=== PATIENT | female | born 2000 | race Caucasian/White ===

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

== ENCOUNTER 2022-01-29 03:02 | Inpatient (IN) | payer OTHER ==
[2022-01-29] MEDS ORDERED: SODIUM CHLORIDE 0.9% 1,000 ML IV STA (03:51)
[2022-01-29] MEDS ORDERED: ONDANSETRON 4 MG/2 ML VIAL IVP STA (03:51)
[2022-01-29] MEDS ORDERED: KETOROLAC 15 MG/ML 1 ML VIAL IVP STA (03:51)
[2022-01-29 04:02] LABS: Appearance,Urine Clear (Clear); Bacteria,Urine Rare /hpf; Bilirubin,Urine Negative (Negative); Blood,Urine Large (Negative); Calcium Oxalate Crystals,Urine Rare /hpf; Color,Urine Yellow; Glucose,Urine (UA) Negative (Negative); Ketones,Urine Negative (Negative); Leukocyte Esterase,Urine Small (Negative); Mucus,Urine Moderate /hpf; Nitrite,Urine Negative (Negative); Protein,Urine 1+ (Negative); RBC,Urine >182 /hpf (0-5); Specific Gravity,Urine 1.027 (1.001-1.035); Squamous Epithelial Cell,Urine 5 /hpf (0-4); Urobilinogen,Urine <2.0 mg/dL (<2.0); WBC,Urine 24 /hpf (0-5)
--- NOTE | 2022-01-29 04:10 | XR ---
EXAMINATION TYPE: XR KUB DATE OF EXAM: 01/29/2022 COMPARISON: NONE HISTORY: Flank pain TECHNIQUE: 2 images upright FINDINGS: There is no sign of intestinal obstruction or pneumoperitoneum. Lung bases are clear. Fecal pattern is normal. No evidence of a mass. No calcification seen over the kidneys. IMPRESSION: Nonacute abdomen.
[2022-01-29 04:20] LABS: Basophils % (A) 0 %; Eosinophils # (A) 0.2 k/uL (0-0.7); Eosinophils % (A) 1 %; HCT 38.4 % (34.0-46.0); HGB 13.1 gm/dL (11.4-16.0); Lymphocytes # (A) 1.6 k/uL (1.0-4.8); Lymphocytes % (A) 11 %; MCH 28.8 pg (25.0-35.0); MCV 84.9 fL (80.0-100.0); Monocytes # (A) 0.7 k/uL (0-1.0); Monocytes % (A) 5 %; Neutrophils # (A) 11.9 k/uL (1.3-7.7); Neutrophils % (A) 82 %; Platelet Count 305 k/uL (150-450); RBC 4.53 m/uL (3.80-5.40); RDW 12.5 % (11.5-15.5); WBC 14.5 k/uL (4.0-11.0)
[2022-01-29 04:37] LABS: ALT 14 U/L (4-34); AST 20 U/L (14-36); African American GFR (CKD) >90 (>60 ml/min/1.73 sqM); Albumin 4.6 g/dL (3.5-5.0); Alkaline Phosphatase 65 U/L (38-126); Amylase 42 U/L (30-110); Anion Gap 10 mmol/L; Blood Urea Nitrogen 19 mg/dL (7-17); Calcium 9.4 mg/dL (8.4-10.2); Carbon Dioxide 23 mmol/L (22-30); Chloride 102 mmol/L (98-107); Glucose 118 mg/dL (74-99); Lipase 106 U/L (23-300); Non-African American GFR(CKD) >90 (>60 ml/min/1.73 sqM); Potassium 3.9 mmol/L (3.5-5.1); Sodium 135 mmol/L (137-145); Total Bilirubin 0.4 mg/dL (0.2-1.3); Total Protein 7.6 g/dL (6.3-8.2)
--- NOTE | 2022-01-29 05:19 | ED ---
General Adult HPI - General Chief complaint: Urogenital Stated complaint: RT flank pain, blood in urine Time Seen by Provider: 01/29/22 03:38 Source: patient, RN notes reviewed, old records reviewed Mode of arrival: ambulatory - History of Present Illness Initial comments: Mariano is a 21-year-old female with past medical history that is unremarkable who presents emergency Department complaining of right-sided flank pain with blood in her urine. There is a family medical history of kidney stones and she believes she is experiencing kidney stones at this time. Patient presents with her mother her alicia story. States the pain has been ongoing for a few days. Denies any diarrhea but does endorse nausea as well as nonbilious, nonbloody emesis a few episodes. Denies fevers. Denies chest pain or shortness of breath. Denies any cough or congestion. Denies being at this time. Last period was 2 days ago. Denies vaginal discharge or bleeding. She present s for further evaluation over concern for possible kidney stone. Is endorsing right-sided flank pain that is in nature that radiates from her back around her flank towards her groin. - Related Data Previous Rx's Medication Instructions Recorded Naproxen [Naprosyn] 375 mg PO Q12HR PRN 10 Days #20 01/29/22 tablet Ondansetron Odt [Zofran Odt] 4 mg PO Q8HR PRN 3 Days #9 tab 01/29/22 Tamsulosin HCl [Flomax] 0.4 mg PO DAILY 10 Days #10 capsule 01/29/22 Allergies Allergy/AdvReac Type Severity Reaction Status Date / Time No Known Allergies Allergy Verified 01/29/22 03:21 Review of Systems ROS Statement: Those systems with pertinent positive or pertinent negative responses have been documented in the HPI. Review of Systems: CONST: Denies fever EYES: Denies blurry vision ENT: Denies nasal congestion C/V: Denies Chest pain RESP: Denies shortness of breath GI: Endorses right-sided flank pain. : Denies dysuria SKIN: Denies rash. MSK: Denies joint pain. NEURO: Denies headache ROS Other: All systems not noted in ROS Statement are negative. Past Medical History Past Medical History: No Reported History Additional Past Medical History / Comment(s): vit d deficent History of Any Multi-Drug Resistant Organisms: None Reported Past Surgical History: No Surgical Hx Reported Past Psychological History: No Psychological Hx Reported Smoking Status: Never smoker Past Alcohol Use History: None Reported Past Drug Use History: None Reported General Exam - General Exam Comments Initial Comments: General: Appears in no acute distress. HEAD: Normal with no signs of head trauma. EYES: PERRLA, EOMI, conjunctiva normal, no discharge. ENT: Hearing grossly intact, normal oropharynx. RESPIRATORY: Clear breath sounds bilaterally. No wheezes, rales, or rhonchi. C/V: Regular rate and rhythm. S1 and S2 auscultated, no edema, peripheral pulses 2+ and intact throughout ABD: Right-sided flank pain on palpation. No guarding. No rebound tenderness. No peritoneal signs. Abdomen is nondistended. No CVA tenderness to percu ssion. EXT: Normal range of motion, no obvious deformity SKIN: No rashes or lesions observed on exposed skin. NEURO: Alert and oriented 4. Course Vital Signs 01/29/22 01/29/22 03:18 06:16 Temperature 98.2 F Pulse Rate 78 77 Respiratory 17 18 Rate Blood Pressure 129/73 115/77 O2 Sat by Pulse 100 100 Oximetry Medical Decision Making - Medical Decision Making The patient's presentation and physical exam, I do believe she likely has an acute intra-abdominal process causing her current symptoms. Strong suspicion for left-sided kidney stone. We'll obtain abdominal laboratory studies, urine study. We'll begin with KUB x-ray. She'll be symptomatically treated with IV fluids, Toradol, Zofran. She was in agreement this plan. KUB x-ray revealed no acute intra-abdominal process. Laboratory studies are remarkable for a mild leukocytosis of 14.5. Patient is not . Urinalysis is remarkable for a large number of RBCs, and otherwise appears to be a somewhat contaminated catch. Discussed with the patient that I believe she likely has a kidney stone based on her workup. Her pain is improved at this time. I did recommend we obtain a computed tomography scan without contrast to further evaluate. She was in agreement this plan. Patient's CT revealed a mildly obstructing 7 mm right-sided kidney stone. There is hydronephrosis present. On reevaluation we discussed results. We discussed that with this size stone of 7mm, there is a 60% chance of successful passing of the stone. They would like to attempt to go home, however patient states she still feels somewhat nauseous. We will attempt by mouth challenge. Patient failed the by mouth challenge, having another episode of emesis, however we will attempt re-administering antiemetics at this time and reevaluate. She was in agreement with this plan. Patient remains nauseous with vomiting following additional antiemetic medications. She will be admitted at this time for intractable nausea and vomiting and a 7 mm right-sided nephrolithiasis with hydronephrosis. Urology will be consulted. I spoke with Dr. Ovalle over the phone who was in agreement this plan. Spoke with Dr. Evans, the admitting physician who accepted the patient. - Lab Data Result diagrams: 01/29/22 04:09 01/29/22 04:09 Lab Results 01/29/22 01/29/22 01/29/22 Range/Units 03:43 03:43 04:09 WBC 14.5 H (4.0-11.0) k/uL RBC 4.53 (3.80-5.40) m/uL Hgb 13.1 (11.4-16.0) gm/dL Hct 38.4 (34.0-46.0) % MCV 84.9 (80.0-100.0) fL MCH 28.8 (25.0-35.0) pg MCHC 34.0 (31.0-37.0) g/dL RDW 12.5 (11.5-15.5) % Plt Count 305 (150-450) k/uL MPV 8.0 Neutrophils % 82 % Lymphocytes % 11 % Monocytes % 5 % Eosinophils % 1 % Basophils % 0 % Neutrophils # 11.9 H (1.3-7.7) k/uL Lymphocytes # 1.6 (1.0-4.8) k/uL Monocytes # 0.7 (0-1.0) k/uL Eosinophils # 0.2 (0-0.7) k/uL Basophils # 0.0 (0-0.2) k/uL Sodium (137-145) mmol/L Potassium (3.5-5.1) mmol/L Chloride (98-107) mmol/L Carbon Dioxide (22-30) mmol/L Anion Gap mmol/L BUN (7-17) mg/dL Creatinine (0.52-1.04) mg/dL Est GFR (CKD-EPI)AfAm (>60 ml/min/1.73 sqM) Est GFR (CKD-EPI)NonAf (>60 ml/min/1.73 sqM) Glucose (74-99) mg/dL Calcium (8.4-10.2) mg/dL Total Bilirubin (0.2-1.3) mg/dL AST (14-36) U/L ALT (4-34) U/L Alkaline Phosphatase (38-126) U/L Total Protein (6.3-8.2) g/dL Albumin (3.5-5.0) g/dL Amylase (30-110) U/L Lipase (23-300) U/L Urine Color Yellow Urine Appearance Clear (Clear) Urine pH 6.0 (5.0-8.0) Ur Specific [place] 1.027 (1.001-1.035) Urine Protein 1+ H (Negative) Urine Glucose (UA) Negative (Negative) Urine Ketones Negative (Negative) Urine Blood Large H (Negative) Urine Nitrite Negative (Negative) Urine Bilirubin Negative (Negative) Urine Urobilinogen <2.0 (<2.0) mg/dL Ur Leukocyte Esterase Small H (Negative) Urine RBC >182 H (0-5) /hpf Urine WBC 24 H (0-5) /hpf Ur Squamous Epith Cells 5 H (0-4) /hpf Calcium Oxalate Crystal Rare H (None) /hpf Urine Bacteria Rare H (None) /hpf Urine Mucus Moderate H (None) /hpf Urine HCG, Qual Not Detected (Not Detectd) 01/29/22 Range/Units 04:09 WBC (4.0-11.0) k/uL RBC (3.80-5.40) m/uL Hgb (11.4-16.0) gm/dL Hct (34.0-46.0) % MCV (80.0-100.0) fL MCH (25.0-35.0) pg MCHC (31.0-37.0) g/dL RDW (11.5-15.5) % Plt Count (150-450) k/uL MPV Neutrophils % % Lymphocytes % % Monocytes % % Eosinophils % % Basophils % % Neutrophils # (1.3-7.7) k/uL Lymphocytes # (1.0-4.8) k/uL Monocytes # (0-1.0) k/uL Eosinophils # (0-0.7) k/uL Basophils # (0-0.2) k/uL Sodium 135 L (137-145) mmol/L Potassium 3.9 (3.5-5.1) mmol/L Chloride 102 (98-107) mmol/L Carbon Dioxide 23 (22-30) mmol/L Anion Gap 10 mmol/L BUN 19 H (7-17) mg/dL Creatinine 0.91 (0.52-1.04) mg/dL Est GFR (CKD-EPI)AfAm >90 (>60 ml/min/1.73 sqM) Est GFR (CKD-EPI)NonAf >90 (>60 ml/min/1.73 sqM) Glucose 118 H (74-99) mg/dL Calcium 9.4 (8.4-10.2) mg/dL Total Bilirubin 0.4 (0.2-1.3) mg/dL AST 20 (14-36) U/L ALT 14 (4-34) U/L Alkaline Phosphatase 65 (38-126) U/L Total Protein 7.6 (6.3-8.2) g/dL Albumin 4.6 (3.5-5.0) g/dL Amylase 42 (30-110) U/L Lipase 106 (23-300) U/L Urine Color Urine Appearance (Clear) Urine pH (5.0-8.0) Ur Specific [place] (1.001-1.035) Urine Protein (Negative) Urine Glucose (UA) (Negative) Urine Ketones (Negative) Urine Blood (Negative) Urine Nitrite (Negative) Urine Bilirubin (Negative) Urine Urobilinogen (<2.0) mg/dL Ur Leukocyte Esterase (Negative) Urine RBC (0-5) /hpf Urine WBC (0-5) /hpf Ur Squamous Epith Cells (0-4) /hpf Calcium Oxalate Crystal (None) /hpf Urine Bacteria (None) /hpf Urine Mucus (None) /hpf Urine HCG, Qual (Not Detectd) Disposition Clinical Impression: Nephrolithiasis, Intractable nausea and vomiting Disposition: ADMITTED IP TO [facility] Condition: Stable Instructions (If sedation given, give patient instructions): Kidney Stones (ED) Is patient prescribed a controlled substance at d/c from ED?: No Referrals: None,Stated [Primary Care Provider] - 1-2 days Tato Parra MD [STAFF PHYSICIAN] - 1-2 days Time of Disposition: 06:30
--- NOTE | 2022-01-29 05:32 | CT ---
EXAMINATION TYPE: CT abdomen pelvis wo con DATE OF EXAM: 01/29/2022 COMPARISON: None HISTORY: Right flank pain CT DLP: 349.1 mGycm Automated exposure control for dose reduction was used. Images obtained from the diaphragm to the floor the pelvis without contrast. The lung bases are clear. No pleural effusion. Heart size is normal. No pericardial effusion. Liver spleen and stomach pancreas gallbladder appear intact. The bile ducts are not dilated. There is no adrenal mass. There is enlargement of the right kidney. There is right-sided hydronephros is and hydroureter. There is apparent 7 mm obstructing calculus in the lower right ureter. The bladde r distends smoothly. Uterus is anteverted. No pelvic mass. The appendix is medial and appears normal. There is no mesenteric edema. No ascites or free air. No sign of a bowel obstruction. No inguinal her smith. There is 2 mm calculus interpolar left kidney. There is 2 mm calculus interpolar right kidney. IMPRESSION: Large obstructing calculus in the lower right ureter with hydronephrosis and hydroureter. Bilateral s mall renal calculi.
[2022-01-29] MEDS ORDERED: SODIUM CHLORIDE 0.9% 500 ML 500 ML IV ONE (06:04)
[2022-01-29] MEDS ORDERED: METOCLOPRAMIDE 5 MG/ML 2 ML VIAL IVP STA (06:04)
[2022-01-29] MEDS ORDERED: NALOXONE 0.4 MG/ML 1 ML VIAL IV PRN (06:32)
[2022-01-29] MEDS: SODIUM CHLORIDE 0.9% 1,000 ML IV SCH ×3 (06:52→18:19)
[2022-01-29] MEDS: HEPARIN SODIUM,PORCINE/PF 5,000 UNIT/0.5 ML SYRINGE SQ SCH ×2 (08:16→16:34)
[2022-01-29] MEDS: ONDANSETRON 4 MG/2 ML VIAL IVP PRN ×2 (08:19→15:26)
[2022-01-29] MEDS: KETOROLAC 15 MG/ML 1 ML VIAL IVP PRN ×2 (11:38→17:51)
--- NOTE | 2022-01-29 13:59 | P.GSCN ---
History of Present Illness Consult date: 01/29/22 Reason for Consult: Right sided nephrolithiasis, 7mm stone with hydronephrosis Requesting physician: Dustin Dowd History of present illness: The patient is a 21-year-old female with past medical history that is unr emarkable. Her mother is at the bedside. She presented Emergency Department complaining of right-sided flank pain for 6 days and blood in her urine. She states her pain radiates from her right back, to her flank, and into her right groin. She has a strong family medical history of kidney stones including her brother who had them at age 16. She has had experienced some associated nausea and vomiting. She denies any fevers or chills. Denies chest pain or shortness of breath. Abdominal/pelvis CT revealed a large 7mm obstructing calculus in the lower right ureter with hydronephrosis. The calculus was not visualized on x- ray. Review of Systems - Constitutional Denies chills, Denies fever - Cardiovascular Denies chest pain, Denies shortness of breath - Respiratory Denies cough, Denies 7 - Gastrointestinal Reports abdominal pain, Reports nausea, Reports vomiting - Genitourinary Genitourinary: Reports flank pain, Reports hematuria, Denies dysuria - Musculoskeletal Reports low back pain - Integumentary Denies rash, Denies unusual bruising - Neurological Denies headaches, Denies syncope - Hematologic/Lymphatic Denies easy bleeding, Denies easy bruising Past Medical History Past Medical History: No Reported History Additional Past Medical History / Comment(s): vit d deficent History of Any Multi-Drug Resistant Organisms: None Reported Past Surgical History: No Surgical Hx Reported Past Psychological History: No Psychological Hx Reported Smoking Status: Never smoker Past Alcohol Use History: None Reported Past Drug Use History: None Reported Medications and Allergies Home Medications Medication Instructions Recorded Confirmed Type Cholecalciferol (Vitamin D3) 75 mcg PO DAILY 01/29/22 01/29/22 History [Vitamin D3 (3000 Iu)] Allergies Allergy/AdvReac Type Severity Reaction Status Date / Time No Known Allergies Allergy Verified 01/29/22 08:00 Surgical - Exam Vital Signs Temp Pulse Resp BP Pulse Ox 98.2 F 78 17 129/73 100 01/29/22 03:18 01/29/22 03:18 01/29/22 03:18 01/29/22 03:18 01/29/22 03:18 General: Well developed, well nourished. No acute distress. HEENT: Head is atraumatic, normocephalic. Lungs: Respirations even and nonlabored. Abdomen/GI: Soft. No abdominal tenderness. Vascular: No peripheral edema Neurologic: Awake, alert and oriented times 3. CN II-XII grossly intact. No focal deficits. Psychiatric: Appropriate mood and affect. Results - Labs 01/29/22 04:09 01/29/22 04:09 Abnormal Lab Results - Last 24 Hours (Table) 01/29/22 01/29/22 01/29/22 Range/Units 03:43 04:09 04:09 WBC 14.5 H (4.0-11.0) k/uL Neutrophils # 11.9 H (1.3-7.7) k/uL Sodium 135 L (137-145) mmol/L BUN 19 H (7-17) mg/dL Glucose 118 H (74-99) mg/dL Urine Protein 1+ H (Negative) Urine Blood Large H (Negative) Ur Leukocyte Esterase Small H (Negative) Urine RBC >182 H (0-5) /hpf Urine WBC 24 H (0-5) /hpf Ur Squamous Epith Cells 5 H (0-4) /hpf Calcium Oxalate Crystal Rare H (None) /hpf Urine Bacteria Rare H (None) /hpf Urine Mucus Moderate H (None) /hpf Microbiology - Last 24 Hours (Table) 01/29/22 03:43 Urine Culture - Preliminary Urine,Voided Diabetes panel 01/29/22 Range/Units 04:09 Sodium 135 L (137-145) mmol/L Potassium 3.9 (3.5-5.1) mmol/L Chloride 102 (98-107) mmol/L Carbon Dioxide 23 (22-30) mmol/L BUN 19 H (7-17) mg/dL Creatinine 0.91 (0.52-1.04) mg/dL Glucose 118 H (74-99) mg/dL Calcium 9.4 (8.4-10.2) mg/dL AST 20 (14-36) U/L ALT 14 (4-34) U/L Alkaline Phosphatase 65 (38-126) U/L Total Protein 7.6 (6.3-8.2) g/dL Albumin 4.6 (3.5-5.0) g/dL Calcium panel 01/29/22 Range/Units 04:09 Calcium 9.4 (8.4-10.2) mg/dL Albumin 4.6 (3.5-5.0) g/dL Pituitary panel 01/29/22 Range/Units 04:09 Sodium 135 L (137-145) mmol/L Potassium 3.9 (3.5-5.1) mmol/L Chloride 102 (98-107) mmol/L Carbon Dioxide 23 (22-30) mmol/L BUN 19 H (7-17) mg/dL Creatinine 0.91 (0.52-1.04) mg/dL Glucose 118 H (74-99) mg/dL Calcium 9.4 (8.4-10.2) mg/dL Adrenal panel 01/29/22 Range/Units 04:09 Sodium 135 L (137-145) mmol/L Potassium 3.9 (3.5-5.1) mmol/L Chloride 102 (98-107) mmol/L Carbon Dioxide 23 (22-30) mmol/L BUN 19 H (7-17) mg/dL Creatinine 0.91 (0.52-1.04) mg/dL Glucose 118 H (74-99) mg/dL Calcium 9.4 (8.4-10.2) mg/dL Total Bilirubin 0.4 (0.2-1.3) mg/dL AST 20 (14-36) U/L ALT 14 (4-34) U/L Alkaline Phosphatase 65 (38-126) U/L Total Protein 7.6 (6.3-8.2) g/dL Albumin 4.6 (3.5-5.0) g/dL - Imaging CT scan - abdomen: report reviewed, image reviewed CT scan - pelvis: report reviewed, image reviewed US - kidney/bladder: report reviewed Assessment and Plan Assessment: The patient's 7mm right calculus is felt to be too large to spontaneously pass on it's own. Dr. Ovalle was at the bedside and presented the patient with surgical options for removing the stone, including ESWL or Ureteroscopy with Laser Lithotripsy and possible stent placement. Risks for both procedures including pain, infection, bleeding and ureteral perforation were discussed. The patient's mother is present. The patient and her mother agreed to proceed with right Ureteroscopy with Laser Lithotripsy and possible stent placement tomorrow. Plan: - NPO after midnight tonight - Pain control with Toradol - Control of nausea with Zofran - IV hydration Impression and plan of care have been directed as dictated by the signing physician. Chelo Rico nurse practitioner acting as scribe for signing physician. Chelo Rico [facility] Palliative Care/Urology [facility] [id number] Email: [email or web address] I personally performed and participated in history, physical exam and decision making. I agree with the assessment and plan of the DIRECTOR IT PROJECT Time with Patient: Greater than 30
--- NOTE | 2022-01-30 03:22 | HP ---
HISTORY AND PHYSICAL HISTORY OF PRESENT ILLNESS: A 21-year-old female comes to the hospital with right-sided severe hydronephrosis and large ureteral calculus in the mid ureter with abnormal urinalysis with dysuria, frequency, urgency, hesitancy, hematuria, flank pain. MEDICATIONS AT HOME: 1. Naprosyn. 2. Zofran. 3. Tamsulosin. REVIEW OF SYSTEMS: A 14-point review of systems otherwise negative. PAST MEDICAL HISTORY: Vitamin D deficient, otherwise negative. FAMILY HISTORY: Negative. PHYSICAL EXAMINATION: VITAL SIGNS: Stable. Afebrile. Blood pressure 129/73, O2 100%, temp 98.2, pulse 78, respiratory rate 17. LUNGS: Clear. HEART: S1, S2. Pupils equal, round, reactive. HEENT: Head normocephalic, atraumatic. PSYCH: Fair mood and affect. NEUROLOGIC: Alert and oriented x3. SKIN: Fair mood intact. CT scan showed right hydronephrosis with intraureteric stone. ASSESSMENT: She is not . She has leukocytosis. We will give her Rocephin for possible UTI and get Urology involved probably to pull the stone out with surgery. Prognosis guarded. Continue broad-spectrum antibiotics for acute renal colic due to hydronephrosis secondary to ureteral stone obstruction, dehydration, urinary tract infection. Continue with antibiotics. Wait for surgery. Pain control. MMMARELYL / IJN: [id number] /
[2022-01-30] MEDS: HEPARIN SODIUM,PORCINE/PF 5,000 UNIT/0.5 ML SYRINGE SQ SCH ×3 (06:17→16:56)
[2022-01-30] MEDS ORDERED: IV FLUID CONTINUATION 100 ML IV ONE (06:44)
[2022-01-30] MEDS ORDERED: DEXAMETHASONE SOD PHOSPHATE 4 MG/ML 1 ML VIAL IVP ONE (07:11)
[2022-01-30] MEDS ORDERED: ONDANSETRON 4 MG/2 ML VIAL IVP ONE (07:12)
[2022-01-30] MEDS ORDERED: SCOPOLAMINE 1 MG/72 HR PATCH TRANSDERM ONE (07:13)
[2022-01-30] MEDS: SODIUM CHLORIDE 0.9% 1,000 ML IV SCH ×4 (07:20→15:39)
[2022-01-30] MEDS ORDERED: MIDAZOLAM 2 MG/2 ML VIAL IVP ONE (07:20)
[2022-01-30] MEDS ORDERED: fentaNYL (PF) 50 MCG/ML 2 ML AMP ONE (07:47)
[2022-01-30] MEDS ORDERED: ePHEDrine 50 MG/ML 1 ML VIAL ONE (07:47)
[2022-01-30] MEDS ORDERED: LIDOCAINE 2% INJ 20 MG/ML (2 ML VIAL) ONE (07:47)
[2022-01-30] MEDS ORDERED: HYDROmorphone (PF) 1 MG/ML ONE (07:47)
[2022-01-30] MEDS ORDERED: PROPOFOL 10 MG/ML 20 ML VIAL IV ONE (07:47)
[2022-01-30] MEDS ORDERED: MIDAZOLAM 2 MG/2 ML VIAL ONE (07:47)
[2022-01-30] MEDS ORDERED: SODIUM CHLORIDE 0.9% 1,000 ML IV ONE (08:20)
[2022-01-30] MEDS ORDERED: IOPAMIDOL-370 50ML BTL IRRIGATION ONE (08:23)
[2022-01-30] MEDS ORDERED: CHOLECALCIFEROL 25 MCG (1000 IU) TABLET PO SCH (09:00)
--- NOTE | 2022-01-30 09:37 | FL ---
EXAMINATION TYPE: FL guidance operating room DATE OF EXAM: 01/30/2022 FLUOROSCOPY Fluoroscopy time of 9 seconds was used during cystoscopy and lithotripsy for ureteral calculus. 1 im age/s document/s the procedure.
[2022-01-30 09:44] VITALS: RESP 18
[2022-01-30] MEDS: KETOROLAC 15 MG/ML 1 ML VIAL IVP PRN (10:37)
[2022-01-30 10:51] LABS: Basophils % (A) 0 %; Eosinophils % (A) 0 %; HCT 37.4 % (34.0-46.0); HGB 12.3 gm/dL (11.4-16.0); Lymphocytes # (A) 0.9 k/uL (1.0-4.8); Lymphocytes % (A) 8 %; MCH 29.1 pg (25.0-35.0); MCHC 32.9 g/dL (31.0-37.0); MCV 88.5 fL (80.0-100.0); Mean Platelet Volume 8.4; Monocytes # (A) 0.1 k/uL (0-1.0); Monocytes % (A) 1 %; Neutrophils % (A) 90 %; Platelet Count 238 k/uL (150-450); RBC 4.22 m/uL (3.80-5.40); RDW 12.7 % (11.5-15.5); WBC 11.1 k/uL (4.0-11.0)
[2022-01-30 11:00] LABS: African American GFR (CKD) >90 (>60 ml/min/1.73 sqM); Anion Gap 12 mmol/L; Blood Urea Nitrogen 9 mg/dL (7-17); Calcium 8.2 mg/dL (8.4-10.2); Carbon Dioxide 21 mmol/L (22-30); Chloride 110 mmol/L (98-107); Glucose 108 mg/dL (74-99); Non-African American GFR(CKD) >90 (>60 ml/min/1.73 sqM); Potassium 3.8 mmol/L (3.5-5.1); Sodium 143 mmol/L (137-145)
[2022-01-30 12:33] VITALS: BP 96/65; TEMP 98
[2022-01-30] MEDS ORDERED: PROCHLORPERAZINE INJ 10 MG/2 ML VIAL IVP PRN (13:16)
[2022-01-30 14:11] VITALS: PULSE 65
--- NOTE | 2022-01-30 18:05 | P.PN ---
Subjective Progress Note Date: 01/30/22 acute overnight events, still having flank pain this morning. Objective - Vital Signs Vital signs: Vital Signs Temp 98 F 01/30/22 12:32 Pulse 64 01/30/22 12:32 Resp 18 01/30/22 12:32 BP 96/65 01/30/22 12:32 Pulse Ox 100 01/30/22 12:32 FiO2 Intake & Output 01/29/22 01/30/22 01/30/22 18:59 06:59 18:59 Intake Total 1150 Output Total 5 Balance 1145 Weight 56.699 kg Intake: IV 1150 Output: Estimated Blood Loss 5 Other: Voiding Method Toilet # Voids 1 - Constitutional General appearance: Present: no acute distress - Gastrointestinal General gastrointestinal: Present: soft, tenderness (right flank). Absent: distended - Psychiatric Psychiatric: Present: A&O x's 3 - Labs CBC & Chem 7: 01/30/22 10:28 01/30/22 10:28 Labs: Abnormal Lab Results - Last 24 Hours (Table) 01/30/22 01/30/22 Range/Units 10:28 10:28 WBC 11.1 H (4.0-11.0) k/uL Neutrophils # 10.0 H (1.3-7.7) k/uL Lymphocytes # 0.9 L (1.0-4.8) k/uL Chloride 110 H (98-107) mmol/L Carbon Dioxide 21 L (22-30) mmol/L Glucose 108 H (74-99) mg/dL Calcium 8.2 L (8.4-10.2) mg/dL Microbiology - Last 24 Hours (Table) 01/29/22 03:43 Urine Culture - Final Urine,Voided Assessment and Plan Assessment: The patient's 7mm right calculus is felt to be too large to spontaneously pass on it's own.surgical options for removing the stone, including ESWL or Ureteroscopy with Laser Lithotripsy and possible stent placement. Risks for both procedures including pain, infection, bleeding and ureteral perforation were discussed. The patient's mother is present. The patient and her mother agreed to proceed with right Ureteroscopy with Laser Lithotripsy and possible stent placement tomorrow. -or for right-sided ureteroscopy with holmium laser lithotripsy stone basketing and stent insertion
--- NOTE | 2022-01-30 18:10 | P.OP ---
Date of Procedure: 01/30/22 Preoperative Diagnosis: right-sided ureteral stone Postoperative Diagnosis: same Procedure(s) Performed: cystoscopy, right ureteroscopy, holmium laser lithotripsy, stone basketing, stent insertion a ureteral balloon dilation Implants: 6-Burmese by 24 cm stent left on a string in the right ureter Anesthesia: COY Surgeon: Janes Ovalle Estimated Blood Loss (ml): 5 Pathology: other (right ureteral stone) Condition: stable Disposition: PACU Indications for Procedure: The patient's 7mm right calculus is felt to be too large to spontaneously pass on it's own.surgical options for removing the stone, including ESWL or Ureteroscopy with Laser Lithotripsy and possible stent placement. Risks for both procedures including pain, infection, bleeding and ureteral perforation were discussed. The patient's mother is present. The patient and her mother agreed to proceed with right Ureteroscopy with Laser Lithotripsy and possible stent placement Operative Findings: two right-sided distal ureteral stones Description of Procedure: patient brought to the operating room, general anesthesia was induced. She was prepped and draped in sterile fashion and placed in dorsal lithotomy position. The cystoscopy fitted with a 21-Burmese sheath was inserted per urethra, cystoscopy was performed which showed no abnormality within the bladder. Attention was then carried to the right ureteral orifice, I attempted to advance the ureteroscope up the right ureter, but the ureter was fairly narrowed. At this time a sensor wire was advanced through the ureteroscope and the ureteroscope was withdrawn with the wire in place. Next under fluoroscopy a ureteral balloon dilator was passed over the wire and into the distal ureter which was dilated using the 12 Fr balloon dilator under fluoroscopy.. Next a semirigid ureteroscope was reinserted and advanced up the right ureteral orifice, ureteroscope was advanced until the stone was encountered in the distal ureter. Using the holmium laser the stone was fragmented into small fragments, sizable fragments were removed using the stone basket and sent for analysis, of note there were 2 stones in the distal ureter both were fragmented and removed. At this time the ureteroscope was advanced all the way up to the UPJ which showed no additional stones or fragments, pullback ureteroscopy was performed which showed no injury to the ureter or any ureteral fragments there was mild edema at the site of stone , as the ureteroscope was withdrawn a sensor wire was advanced through. Next a ureteral stent was passed over the wire, the proximal curl was visualized on fluoroscopy and the distal curl was visualized using the cystoscope. The stent was left on a string and taped to the patient's right thigh. Patient tolerated the procedure well was taken to recovery in stable condition
--- NOTE | 2022-02-03 08:45 | P.DS ---
Providers Date of admission: 01/29/22 06:32 Attending physician: Mil Evans Consults: 01/29/22 06:32 Consult Physician Routine Consulting Provider: Janes Ovalle Consult Reason/Comments: right sided nephrolithiasis, 7mm stone with hydronephrosis Do you want consulting provider notified?: Already Contacted Primary care physician: Stated None Hospital Course: This is a 21 yo female admitted to the hospital with right sided ureteral stone, She underwent right sided ureteroscopy with holmium laser on 01/30. please see op note dated 01/30 for surgery details. She was discharged home on 01/30. At time of discharge she was tolerating a diet, ambulating and pain was controlled Patient Condition at Discharge: Stable Plan - Discharge Summary Discharge Rx Participant: Yes New Discharge Prescriptions: New Ketorolac [Toradol] 10 mg PO Q6HR PRN #15 tab PRN Reason: Pain Cephalexin [Keflex] 500 mg PO Q8HR #15 cap Ondansetron [Zofran] 4 mg PO Q8HR PRN #10 tab PRN Reason: Nausea No Action Cholecalciferol (Vitamin D3) [Vitamin D3 (3000 Iu)] 75 mcg PO DAILY Discharge Medication List Cholecalciferol (Vitamin D3) [Vitamin D3 (3000 Iu)] 75 mcg PO DAILY 01/29/22 [History] Cephalexin [Keflex] 500 mg PO Q8HR #15 cap 01/30/22 [Rx] Ketorolac [Toradol] 10 mg PO Q6HR PRN #15 tab 01/30/22 [Rx] Ondansetron [Zofran] 4 mg PO Q8HR PRN #10 tab 01/30/22 [Rx] Follow up Appointment(s)/Referral(s): Janes Ovalle MD [STAFF PHYSICIAN] - 1 Week (UROLOGY OFFICE WILL CALL YOU ON WEDNESDAY, January WITH AN APPOINTMENT DATE AND TIME.) None,Stated [Primary Care Provider] - 1-2 days Patient Instructions/Handouts: *Surgery [facility] - Cystoscopy Discharge Instructions, *Sur[facility] - Scopalamine Patch Instructions, Cephalexin (By mouth), Ketorolac (By mouth), Ondansetron (By mouth), Kidney Stones (ED) Discharge Disposition: HOME SELF-CARE
== END 2022-01-30 18:34 | disposition home or self-care (01) | DRG 661 ==
LOC: EC 03:02 → 4SSUR 06:32 → 5NMEDONC 17:01
PROVIDERS: ADMIT Family Medicine; ATTEND Family Medicine
PROC: 0T768DZ Dilation of Right Ureter with Intraluminal Device, Via Natural or Artificial Opening Endoscopic (ICD-10-PCS; principal; 2022-01-30 07:45)
PROC: 0TC68ZZ Extirpation of Matter from Right Ureter, Via Natural or Artificial Opening Endoscopic (ICD-10-PCS; principal; 2022-01-30 07:45)
DX: N13.6 Pyonephrosis (principal); E55.9 Vitamin D deficiency, unspecified; E86.0 Dehydration; Z79.899 Other long term (current) drug therapy; Z84.1 Family history of disorders of kidney and ureter
CPT/HCPCS: 36415; 74018; 74176; 80048; 80053; 81001; 81025; 82150; 82365; 83690; 85025; 87086; 96361; 96365; 96375; 96376; 99285